=== PATIENT | female | born 1980 | race American Indian/Alaskan Native ===

== ENCOUNTER 2016-10-27 07:36 | Emergency (ER) | payer OTHER ==
[2016-10-27 08:08] VITALS: BP 104/63
[2016-10-27 08:42] LABS: Basophils % (Auto) 0.3 % (0.0-1.8); Eosinophils % (Auto) 0.3 % (0.0-4.3); Hematocrit 39.9 % (30.3-42.9); Hemoglobin 13.2 gm/dl (10.1-14.3); Mean Corpuscular HGB Conc 33 % (30-34); Mean Corpuscular Volume 77 fl (79-97); Platelet Count 292 K/mm3 (140-440); Red Blood Count 5.17 M/mm3 (3.65-5.03); Red Cell Distribution Width 13.5 % (13.2-15.2); White Blood Count 7.4 K/mm3 (4.5-11.0)
[2016-10-27 08:55] LABS: Mean Corpuscular Hemoglobin 26 pg (28-32)
[2016-10-27 08:58] LABS: Alanine Aminotransferase 11 units/L (7-56); Albumin/Globulin Ratio 1.2 %; Alkaline Phosphatase 61 units/L (35-129); Anion Gap 17 mmol/L; Blood Urea Nitrogen 14 mg/dL (7-17); Carbon Dioxide 26 mmol/L (22-30); Chloride 105.1 mmol/L (98-107); Glucose 101 mg/dL (65-100); Lipase 31 units/L (13-60); Potassium 3.5 mmol/L (3.6-5.0); Sodium 145 mmol/L (137-145); Total Protein 7.3 g/dL (6.3-8.2)
[2016-10-27] MEDS ORDERED: ZOFRAN IV ONE (13:17)
[2016-10-27] MEDS ORDERED: PEPCID IV ONE (13:18)
[2016-10-27] MEDS ORDERED: NACL ONE (15:08)
--- NOTE | 2016-10-27 16:17 | Cat Scan Report ---
FINAL REPORT PROCEDURE: CT ABDOMEN PELVIS W CON TECHNIQUE: Computerized axial tomography of the abdomen and pelvis was performed after the IV injection of iodinated nonionic contrast. HISTORY: abdominal pain, epigastric, luq, vomiting COMPARISON: No prior studies are available for comparison. FINDINGS: Visualized lower thorax: Lower lung zone atelectasis. Liver: Diffuse fatty infiltration of liver. Spleen: Normal size and attenuation. Gallbladder and biliary system: Metallic clips gallbladder fossa from prior cholecystectomy. Pancreas: Normal. Adrenals: Normal. Kidneys: Normal. GI tract: No oral contrast. Scattered fluid filled loops small bowel measuring 2 centimeter range. Small umbilical herniation fat without bowel involvement.. Small hiatal hernia Lymph nodes and mesentery: Normal. Vasculature: Normal. Bladder: Normal. Reproductive organs: Multilobular heterogeneous uterus consistent with extensive fibroid disease and with calcifications likely fibroid related. Ultrasound correlation may be warranted if clinically indicated. Underlying uterine malignancy not entirely excludable but not favored statistically.. Peritoneum: No free fluid. Musculoskeletal structures: No significant abnormality. Other: Mild degenerative changes lower lumbar spine. IMPRESSION: Suspect extensive fibroid uterus. No acute pathology. Details above. Followup is advised as warranted.
[2016-10-27 18:31] LABS: Bacteria,Urine 1+ /HPF (Negative); Bilirubin,Urine NEG (Negative); Blood,Urine NEG (Negative); Ketones,Urine TR mg/dL (Negative); Leukocyte Esterase,Urine NEG (Negative); Nitrite,Urine NEG (Negative); Protein,Urine <15 mg/dL mg/dL (Negative); Urobilinogen,Urine < 2.0 mg/dL (<2.0)
--- NOTE | 2016-10-27 19:03 | Emergency Department Report ---
ED Abdominal Pain HPI - General Chief Complaint: Abdominal Pain Stated Complaint: ABD PAIN Time Seen by Provider: 10/27/16 18:58 Source: patient, EMS Mode of arrival: Wheelchair Limitations: No Limitations - History of Present Illness Initial Comments: Patient's is a 36-year-old female who presents to emergency department with complaint of abdominal pain. Pain is been worse over the last few days. She is tender in the epigastrium. She appears otherwise well. Some nausea and vomiting. States she hasn't really had any symptoms like this before. MD Complaint: abdominal pain -: Gradual Location: epigastric Radiation: none Migration to: no migration Severity: moderate Quality: cramping Consistency: now resolved Improves With: nothing Worsens With: nothing Associated Symptoms: nausea, vomiting, diarrhea. denies: fever, constipation, dysuria - Related Data Home Medications Medication Instructions Recorded Confirmed Last Taken Ascorbic Acid [Vitamin C] 500 mg PO DAILY 05/10/14 05/19/14 05/18/14 10:00 Calcium Carbonate [ Calcium 600 mg PO DAILY 05/10/14 05/19/14 05/05/14 Elemental 600 mg] Folic Acid [Folic Acid] 250 mg PO DAILY 05/10/14 05/19/14 05/18/14 10:00 Previous Rx's Medication Instructions Recorded Last Taken Type Ibuprofen [Motrin] 600 mg PO Q6H PRN #30 tablet 05/20/14 Unknown Rx oxyCODONE /ACETAMINOPHEN [Percocet 2 tab PO Q4H PRN #30 tablet 05/20/14 Unknown Rx 5/325] Famotidine [Pepcid] 20 mg PO BID #30 tablet 10/27/16 Unknown Rx Ibuprofen [Motrin 400 MG tab] 400 mg PO Q8H PRN #30 tablet 10/27/16 Unknown Rx Ondansetron [Zofran Odt] 4 mg PO Q6HR PRN #10 tab.rapdis 10/27/16 Unknown Rx Allergies Allergy/AdvReac Type Severity Reaction Status Date / Time No Known Allergies Allergy Verified 07/01/15 07:31 ED Review of Systems ROS: Stated complaint: ABD PAIN Other details as noted in HPI Comment: All other systems reviewed and negative Constitutional: denies: chills, fever Eyes: denies: eye pain, eye discharge, vision change ENT: denies: ear pain, throat pain Respiratory: denies: cough, shortness of breath, wheezing Cardiovascular: denies: chest pain, palpitations Endocrine: no symptoms reported Gastrointestinal: abdominal pain, nausea, vomiting. denies: diarrhea Genitourinary: denies: urgency, dysuria, discharge Musculoskeletal: denies: back pain, joint swelling, arthralgia Skin: denies: rash, lesions Neurological: denies: headache, weakness, paresthesias Psychiatric: denies: anxiety, depression Hematological/Lymphatic: denies: easy bleeding, easy bruising ED Past Medical Hx - Past Medical History Previous Medical History?: Yes Hx Hypertension: No Hx Congestive Heart Failure: No Hx Diabetes: No Hx Asthma: No Hx COPD: No Additional medical history: FIBROIDS. ANEMIA - Surgical History Past Surgical History?: Yes Hx Cholecystectomy: Yes Hx Appendectomy: Yes Additional Surgical History: - Social History Smoking Status: Never Smoker Substance Use Type: None - Medications Home Medications: Home Medications Medication Instructions Recorded Confirmed Last Taken Type Ascorbic Acid [Vitamin C] 500 mg PO DAILY 05/10/14 05/19/14 05/18/14 10:00 History Calcium Carbonate [ Calcium 600 mg PO DAILY 05/10/14 05/19/14 05/05/14 History Elemental 600 mg] Folic Acid [Folic Acid] 250 mg PO DAILY 05/10/14 05/19/14 05/18/14 10:00 History Ibuprofen [Motrin] 600 mg PO Q6H PRN #30 tablet 05/20/14 Unknown Rx oxyCODONE /ACETAMINOPHEN [Percocet 2 tab PO Q4H PRN #30 tablet 05/20/14 Unknown Rx 5/325] Famotidine [Pepcid] 20 mg PO BID #30 tablet 10/27/16 Unknown Rx Ibuprofen [Motrin 400 MG tab] 400 mg PO Q8H PRN #30 tablet 10/27/16 Unknown Rx Ondansetron [Zofran Odt] 4 mg PO Q6HR PRN #10 tab.rapdis 10/27/16 Unknown Rx ED Physical Exam - General Limitations: No Limitations General appearance: alert, in no apparent distress - Head Head exam: Present: atraumatic, normocephalic - Eye Eye exam: Present: normal appearance - ENT ENT exam: Present: mucous membranes moist - Neck Neck exam: Present: normal inspection - Respiratory Respiratory exam: Present: normal lung sounds bilaterally. Absent: respiratory distress - Cardiovascular Cardiovascular Exam: Present: regular rate, normal rhythm. Absent: systolic murmur, diastolic murmur, rubs, gallop - GI/Abdominal GI/Abdominal exam: Present: tenderness, normal bowel sounds. Absent: distended , guarding, rebound, rigid - Extremities Exam Extremities exam: Present: normal inspection - Back Exam Back exam: Present: normal inspection - Neurological Exam Neurological exam: Present: alert, oriented X3 - Psychiatric Psychiatric exam: Present: normal affect, normal mood - Skin Skin exam: Present: warm, dry, intact, normal color. Absent: rash ED Course Vital Signs 10/27/16 08:00 Temperature 97.6 F Pulse Rate 80 Respiratory 16 Rate Blood Pressure 104/63 O2 Sat by Pulse 100 Oximetry ED Medical Decision Making - Lab Data Result diagrams: 10/27/16 08:21 10/27/16 08:21 Abnormal Lab Results 10/27/16 10/27/16 10/27/16 07:52 08:21 08:21 WBC 7.4 RBC 5.17 H Hgb 13.2 Hct 39.9 MCV 77 L MCH 26 L MCHC 33 RDW 13.5 Plt Count 292 Lymph % (Auto) 20.2 Murray % (Auto) 9.7 H Eos % (Auto) 0.3 Baso % (Auto) 0.3 Lymph # 1.5 Murray # 0.7 Eos # 0.0 Baso # 0.0 Seg Neutrophils % 69.5 Seg Neutrophils # 5.2 Sodium 145 Potassium 3.5 L Chloride 105.1 Carbon Dioxide 26 Anion Gap 17 BUN 14 Creatinine 0.8 Estimated GFR > 60 BUN/Creatinine Ratio 17.50 Glucose 101 H POC Glucose 100 Calcium 9.0 Total Bilirubin 0.30 AST 13 ALT 11 Alkaline Phosphatase 61 Total Protein 7.3 Albumin 4.0 Albumin/Globulin Ratio 1.2 Lipase 31 HCG, Quant Urine Color Urine Turbidity Urine pH Ur Specific [place] Urine Protein Urine Glucose (UA) Urine Ketones Urine Blood Urine Nitrite Urine Bilirubin Urine Urobilinogen Ur Leukocyte Esterase Urine WBC (Auto) Urine RBC (Auto) U Epithel Cells (Auto) Urine Bacteria (Auto) 10/27/16 10/27/16 08:21 18:00 WBC RBC Hgb Hct MCV MCH MCHC RDW Plt Count Lymph % (Auto) Murray % (Auto) Eos % (Auto) Baso % (Auto) Lymph # Murray # Eos # Baso # Seg Neutrophils % Seg Neutrophils # Sodium Potassium Chloride Carbon Dioxide Anion Gap BUN Creatinine Estimated GFR BUN/Creatinine Ratio Glucose POC Glucose Calcium Total Bilirubin AST ALT Alkaline Phosphatase Total Protein Albumin Albumin/Globulin Ratio Lipase HCG, Quant 3.92 Urine Color Yellow Urine Turbidity Clear Urine pH 7.0 Ur Specific [place] 1.051 H Urine Protein <15 mg/dl Urine Glucose (UA) Neg Urine Ketones Tr Urine Blood Neg Urine Nitrite Neg Urine Bilirubin Neg Urine Urobilinogen < 2.0 Ur Leukocyte Esterase Neg Urine WBC (Auto) 3.0 Urine RBC (Auto) 4.0 U Epithel Cells (Auto) 2.0 Urine Bacteria (Auto) 1+ - Medical Decision Making Patient is a 36-year-old female with complaint of abdominal pain nausea vomiting diarrhea. She is tender in the epigastrium. Lab work and CT of her abdomen were unremarkable. She does have a fairly significant fibroid uterus I do not suspect this is the acute cause of her pain. Plan to discharge her with oral Zofran and Pepcid and ibuprofen. Critical care attestation.: If time is entered above; I have spent that time in minutes in the direct care of this critically ill patient, excluding procedure time. ED Disposition Clinical Impression: Gastroenteritis Disposition: DC-01 TO HOME OR SELFCARE Is pt being admited?: No Does the pt Need Aspirin: No Condition: Stable Instructions: Abdominal Pain (ED) Prescriptions: Famotidine [Pepcid] 20 mg PO BID #30 tablet Ibuprofen [Motrin 400 MG tab] 400 mg PO Q8H PRN #30 tablet PRN Reason: Pain Ondansetron [Zofran Odt] 4 mg PO Q6HR PRN #10 tab.rapdis PRN Reason: Nausea Referrals: BRONWYN JULES, ENVIRONMENTAL CONTROL ADMINISTRATOR-C [Primary Care Provider] - 3-5 Days
== END 2016-10-27 19:31 | disposition home or self-care (01) ==
LOC: ED 07:36
DX: K52.9 Noninfective gastroenteritis and colitis, unspecified (principal); D64.9 Anemia, unspecified
CPT/HCPCS: 36415; 74177; 80053; 81001; 82962; 83690; 84702; 85025; 99284; Q9967

== ENCOUNTER 2018-06-25 01:38 | Emergency (ER) | payer OTHER ==
[2018-06-25] MEDS ORDERED: TYLENOL PO ONE (02:09)
[2018-06-25 02:10] VITALS: BP 106/71
[2018-06-25] MEDS ORDERED: TYLENOL ONE (02:11)
--- NOTE | 2018-06-25 03:55 | Emergency Department Report ---
ED General Adult HPI - General Chief complaint: Headache Stated complaint: HEADACHE Time Seen by Provider: 06/25/18 03:47 Source: patient Mode of arrival: Ambulatory Limitations: No Limitations - History of Present Illness Initial comments: This 38-year-old -French female presents emergency department complaining nausea and vomiting with occasional headaches since since taken the entire fungal for her total griseofulvin. She is trying to take his medication for the last 5 days, but has been unable to tolerate the symptomology. She was taken the medication for toe fungus -: Gradual, days(s) (4) Location: head Severity scale (0 -10): 10 - Related Data Home Medications Medication Instructions Recorded Confirmed Last Taken Griseofulvin 500 mg PO DAILY 06/25/18 06/25/18 Unknown Previous Rx's Medication Instructions Recorded Last Taken Type Ketorolac [Toradol] 10 mg PO Q6H PRN #14 tablet 06/25/18 Unknown Rx Allergies Allergy/AdvReac Type Severity Reaction Status Date / Time No Known Allergies Allergy Verified 07/01/15 07:31 ED Review of Systems ROS: Stated complaint: HEADACHE Other details as noted in HPI Constitutional: denies: chills, fever Eyes: denies: eye pain, eye discharge, vision change ENT: denies: ear pain, throat pain Respiratory: denies: cough, shortness of breath, wheezing Cardiovascular: denies: chest pain, palpitations Endocrine: no symptoms reported Gastrointestinal: denies: abdominal pain, nausea, diarrhea Genitourinary: denies: urgency, dysuria, discharge Musculoskeletal: denies: back pain, joint swelling, arthralgia Skin: denies: rash, lesions Neurological: headache. denies: weakness, paresthesias Psychiatric: denies: anxiety, depression Hematological/Lymphatic: denies: easy bleeding, easy bruising ED Past Medical Hx - Past Medical History Hx Hypertension: No Hx Congestive Heart Failure: No Hx Diabetes: No Hx Asthma: No Hx COPD: No Additional medical history: FIBROIDS, Fungus of toes. ANEMIA - Surgical History Hx Cholecystectomy: Yes Hx Appendectomy: Yes Additional Surgical History: - Social History Smoking Status: Never Smoker Substance Use Type: None - Medications Home Medications: Home Medications Medication Instructions Recorded Confirmed Last Taken Type Griseofulvin 500 mg PO DAILY 06/25/18 06/25/18 Unknown History Ketorolac [Toradol] 10 mg PO Q6H PRN #14 tablet 06/25/18 Unknown Rx ED Physical Exam - General Limitations: No Limitations General appearance: alert, in no apparent distress - Head Head exam: Present: atraumatic, normocephalic - Eye Eye exam: Present: normal appearance, PERRL, EOMI Pupils: Present: normal accommodation - ENT ENT exam: Present: mucous membranes moist - Neck Neck exam: Present: normal inspection - Respiratory Respiratory exam: Present: normal lung sounds bilaterally. Absent: respiratory distress - Cardiovascular Cardiovascular Exam: Present: regular rate, normal rhythm. Absent: systolic murmur, diastolic murmur, rubs, gallop - GI/Abdominal GI/Abdominal exam: Present: soft, normal bowel sounds - Extremities Exam Extremities exam: Present: normal inspection, other (Pigmented or right hallux was some discoloration and some toenail thickening disavows of onychomycosis) - Back Exam Back exam: Present: normal inspection - Neurological Exam Neurological exam: Present: alert, oriented X3 - Psychiatric Psychiatric exam: Present: normal affect, normal mood - Skin Skin exam: Present: warm, dry, intact, normal color. Absent: rash ED Course Vital Signs 06/25/18 02:03 Temperature 98.1 F Pulse Rate 83 Respiratory 16 Rate Blood Pressure 106/71 O2 Sat by Pulse 99 Oximetry ED Medical Decision Making - Medical Decision Making Discussed the patient. The side effects of the griseofulvin and the medications other medications that help treat her onychomycosis. Advised to follow with primary care provider Zaida or even the foot doctor for guidance of treatment with this condition as it can take 12 weeks and sometimes longer. Would not restart in the any medications for the onychomycosis to date. Her headache is nearly resolved. She is neurologically intact changes. No numbness, tingling, lightheadedness or dizziness. Critical care attestation.: If time is entered above; I have spent that time in minutes in the direct care of this critically ill patient, excluding procedure time. ED Disposition Clinical Impression: Medication reaction, Onychomycosis, Nausea, Cephalgia Disposition: - TO HOME OR SELFCARE Is pt being admited?: No Does the pt Need Aspirin: No Condition: Stable Instructions: Acute Headache (ED) Prescriptions: Ketorolac [Toradol] 10 mg PO Q6H PRN #14 tablet PRN Reason: Pain Referrals: AMY FREED DPM [Staff Physician] - 3-5 Days TALAT FREDERICK MD [Staff Physician] - 3-5 Days [facility] [Provider Group] - 3-5 Days
[2018-06-25 03:57] LABS: Hematocrit 41.3 % (30.3-42.9); Hemoglobin 13.6 gm/dl (10.1-14.3); Mean Corpuscular HGB Conc 33 % (30-34); Mean Corpuscular Volume 78 fl (79-97); Platelet Count 296 K/mm3 (140-440); Red Blood Count 5.32 M/mm3 (3.65-5.03); Red Cell Distribution Width 13.8 % (13.2-15.2)
[2018-06-25 04:16] LABS: Alanine Aminotransferase 17 units/L (7-56); Albumin 4.2 g/dL (3.9-5); BUN/Creatinine Ratio 17; Blood Urea Nitrogen 10 mg/dL (7-17); Calcium 9.1 mg/dL (8.4-10.2); Hemolysis Index 3
[2018-06-25 04:41] LABS: Basophils % (Manual) 0 % (0.0-1.8); Total Cells Counted 100
[2018-06-25 04:42] LABS: RBC Morphology Normal
== END 2018-06-25 04:31 | disposition home or self-care (01) ==
LOC: ED 01:38
DX: T50.905A Adverse effect of unspecified drugs, medicaments and biological substances, initial encounter (principal); B35.1 Tinea unguium; Z86.2 Personal history of diseases of the blood and blood-forming organs and certain disorders involving the immune mechanism; Z90.49 Acquired absence of other specified parts of digestive tract; Y92.89 Other specified places as the place of occurrence of the external cause
CPT/HCPCS: 36415; 80053; 85007; 85025; 99283

== ENCOUNTER 2019-02-17 12:29 | Emergency (ER) | payer OTHER ==
[2019-02-17] MEDS ORDERED: ASPIRIN PO ONE (12:41)
--- NOTE | 2019-02-17 12:42 | Event Note ---
ED Screening Note Date of service: 02/17/19 Time: 12:40 ED Screening Note: This is a 39 y.o. F. that presents to the ER with chest pain radiating to RUE for 3 days and worsening. Reports pressure intensity that is constant. Nonsmoker This initial assessment/diagnostic orders/clinical plan/treatment(s) is/are subject to change based on patients health status, clinical progression and re- assessment by fellow clinical providers in the ED. Further treatment and workup at subsequent clinical providers discretion. Patient/guardian urged not to elope from the ED as their condition may be serious if not clinically assessed and managed. Initial orders include: Labs, EKG, & CXR
[2019-02-17 13:04] LABS: Basophils % (Auto) 0.5 % (0.0-1.8); Eosinophils # (Auto) 0.1 K/mm3 (0.0-0.4); Eosinophils % (Auto) 1.5 % (0.0-4.3); Hematocrit 41.1 % (30.3-42.9); Hemoglobin 13.6 gm/dl (10.1-14.3); Lymphocytes # (Auto) 3.2 K/mm3 (1.2-5.4); Lymphocytes % (Auto) 47.4 % (13.4-35.0); Mean Corpuscular HGB Conc 33 % (30-34); Mean Corpuscular Volume 78 fl (79-97); Monocytes # (Auto) 0.8 K/mm3 (0.0-0.8); Monocytes % (Auto) 11.3 % (0.0-7.3); Platelet Count 278 K/mm3 (140-440); Red Blood Count 5.31 M/mm3 (3.65-5.03); Red Cell Distribution Width 13.7 % (13.2-15.2)
[2019-02-17 13:26] LABS: BUN/Creatinine Ratio 14; Blood Urea Nitrogen 10 mg/dL (7-17); Calcium 9.1 mg/dL (8.4-10.2); Hemolysis Index 3
--- NOTE | 2019-02-17 13:32 | XRay Report ---
CHEST 1 VIEW INDICATION: Chest Pain. COMPARISON: None. FINDINGS: Support devices: None. Heart: Within normal limits. Pulmonary vasculature: Normal Lungs/Pleura: No acute air space or interstitial disease. Additional findings: None. IMPRESSION: 1. Acute cardiopulmonary process. Signer Name: Javier Rudd MD Signed: 02/17/2019 1:27 PM Workstation Name: [id number]
[2019-02-17 14:05] LABS: INR 1.01 (0.87-1.13)
[2019-02-17 14:06] LABS: Partial Thromboplastin Time 30.3 Sec. (24.2-36.6)
[2019-02-17 14:24] VITALS: BP 123/51
--- NOTE | 2019-02-17 15:01 | Emergency Department Report ---
ED Chest Pain HPI - General Chief Complaint: Chest Pain Stated Complaint: CHEST PAIN Time Seen by Provider: 02/17/19 12:40 Source: patient Mode of arrival: Ambulatory Limitations: No Limitations - History of Present Illness Initial Comments: 's is a 39-year-old female that states she's had intermittent chest pain in her anterior chest over the past 3 days. Is not associated with exertion. She states that she noticed a difference in her taste. However she's had no nausea no sweating no dyspnea. She states that this chest pain is unusual for her and she's had no prior workup. She rates the chest pain as mild and now resolved. It did not radiate to the shoulder as mentioned in the triage note at least on my history. Patient's had no cough no leg swelling and no recent travel. She has no medical history whatsoever. She's never been a smoker. She does go to a family doctor. She does not have high cholesterol. Her family history is nega tive for coronary artery disease and heart problems and venous thromboembolism. MD Complaint: chest pain -: Gradual, days(s) Onset: during rest Pain Location: substernal Pain Radiation: none Severity: mild Severity scale (0 -10): 0 Quality: dull Consistency: intermittent Improves With: nothing Worsens With: nothing re: denies: nausea, vomting, diaphoresis, dyspnea, sense of impending doom Other Symptoms: denies: cough, fever, syncope Treatments Prior to Arrival: none Aspirin use within the Past 7 Days: (0) No - Related Data On Oral Contraceptives: No Home Medications Medication Instructions Recorded Confirmed Last Taken Griseofulvin 500 mg PO DAILY 06/25/18 06/25/18 Unknown Previous Rx's Medication Instructions Recorded Last Taken Type Ketorolac [Toradol] 10 mg PO Q6H PRN #14 tablet 06/25/18 Unknown Rx Allergies Allergy/AdvReac Type Severity Reaction Status Date / Time No Known Allergies Allergy Verified 07/01/15 07:31 Heart Score - HEART Score History: Slightly suspicious EKG: Normal Age: < 45 Risk factors: No known risk factors Troponin: < normal limit HEART Score: 0 - Critical Actions Critical Actions: 0-3 pts:0.9-1.7%risk of adverse cardiac event.Candidate for discharge ED Review of Systems ROS: Stated complaint: CHEST PAIN Other details as noted in HPI Constitutional: denies: chills, fever Eyes: denies: eye pain, eye discharge, vision change ENT: denies: ear pain, throat pain Respiratory: denies: cough, shortness of breath, wheezing Cardiovascular: chest pain. denies: palpitations Endocrine: no symptoms reported Gastrointestinal: denies: abdominal pain, nausea, diarrhea Genitourinary: denies: urgency, dysuria, discharge Musculoskeletal: denies: back pain, joint swelling, arthralgia Skin: denies: rash, lesions Neurological: denies: headache, weakness, paresthesias Psychiatric: denies: anxiety, depression Hematological/Lymphatic: denies: easy bleeding, easy bruising ED Past Medical Hx - Past Medical History Previous Medical History?: Yes Hx Hypertension: No Hx Congestive Heart Failure: No Hx Diabetes: No Hx Asthma: No Hx COPD: No Additional medical history: FIBROIDS, Fungus of toes. ANEMIA - Surgical History Past Surgical History?: Yes Hx Cholecystectomy: Yes Hx Appendectomy: Yes Additional Surgical History: - Social History Smoking Status: Never Smoker Substance Use Type: None - Medications Home Medications: Home Medications Medication Instructions Recorded Confirmed Last Taken Type Griseofulvin 500 mg PO DAILY 06/25/18 06/25/18 Unknown History Ketorolac [Toradol] 10 mg PO Q6H PRN #14 tablet 06/25/18 Unknown Rx ED Physical Exam - General Limitations: No Limitations General appearance: alert, in no apparent distress - Head Head exam: Present: atraumatic, normocephalic - Eye Eye exam: Present: normal appearance. Absent: scleral icterus - ENT ENT exam: Present: mucous membranes moist - Neck Neck exam: Present: normal inspection - Respiratory Respiratory exam: Present: normal lung sounds bilaterally. Absent: respiratory distress - Cardiovascular Cardiovascular Exam: Present: regular rate, normal rhythm. Absent: systolic murmur, diastolic murmur, rubs, gallop - GI/Abdominal GI/Abdominal exam: Present: soft, normal bowel sounds. Absent: distended, tenderness, guarding, rebound, rigid - Extremities Exam Extremities exam: Present: normal inspection, normal capillary refill. Absent: pedal edema, joint swelling, calf tenderness - Back Exam Back exam: Present: normal inspection - Neurological Exam Neurological exam: Present: alert, oriented X3, CN II-XII intact. Absent: motor sensory deficit - Psychiatric Psychiatric exam: Present: normal affect, normal mood - Skin Skin exam: Present: warm, dry, intact, normal color. Absent: rash ED Course Vital Signs 02/17/19 02/17/19 02/17/19 12:38 13:08 14:23 Temperature 98.0 F Pulse Rate 52 L 51 L 58 L Respiratory 18 16 18 Rate Blood Pressure 102/57 Blood Pressure 123/51 [Left] O2 Sat by Pulse 100 98 100 Oximetry - Reevaluation(s) Reevaluation #1: It was entirely comfortable in the emergency department she did not experience chest pain. She ate her lunch without any difficulty. He agreed that follow-up and further evaluation as an outpatient would be appropriate. 02/17/19 14:59 YFN score - Yfn Score Age > 65: (0) No Aspirin use within the Past 7 Days: (0) No 3 or more CAD Risk Factors: (0) No 2 or more Angina events in past 24 hrs: (0) No Known CAD with more than 50% Stenosis: (0) No Elevated Cardiac Markers: (0) No ST Deviation Greater than 0.5mm: (0) No YFN Score: 0 ED Medical Decision Making - Lab Data Result diagrams: 02/17/19 12:51 02/17/19 12:51 - EKG Data -: EKG Interpreted by Me EKG shows normal: sinus rhythm, axis, intervals, QRS complexes, ST-T waves Rate: normal - EKG Data When compared to previous EKG there are: no significant change Interpretation: no acute changes, normal EKG - Radiology Data Radiology results: report reviewed (there is a type-o in The radiologist report. It should be no acute cardiopulmonary process), image reviewed Critical care attestation.: If time is entered above; I have spent that time in minutes in the direct care of this critically ill patient, excluding procedure time. ED Disposition Clinical Impression: Atypical chest pain Disposition: DC-01 TO HOME OR SELFCARE Is pt being admited?: No Does the pt Need Aspirin: No Condition: Stable Instructions: Chest Pain (ED) Additional Instructions: Return to the emergency department any recurring chest pain or acute change. Follow-up with her family doctor and/or cardiology referral. Referrals: HAWA PAUL MD [Staff Physician] - 2-3 Days Time of Disposition: 15:02
[2019-02-17 15:11] LABS: Creatine Kinase MB 2.5 ng/mL (0.0-4.0)
[2019-02-17 15:12] LABS: Albumin 4.2 g/dL (3.9-5)
[2019-02-17 15:21] LABS: Bilirubin,Direct 0.2 mg/dL (0-0.2)
== END 2019-02-17 15:33 | disposition home or self-care (01) ==
LOC: ED 12:29
DX: R07.89 Other chest pain (principal); Z90.49 Acquired absence of other specified parts of digestive tract; Z90.89 Acquired absence of other organs; Z79.899 Other long term (current) drug therapy
CPT/HCPCS: 36415; 71045; 80048; 80076; 82550; 82553; 84484; 85025; 85379; 85610; 85730; 93005; 93010